=== PATIENT | female | born 1945 | race Caucasian/White ===

== ENCOUNTER 2025-01-25 15:25 | Inpatient (IN) | payer MEDICARE, OTHER, SELFPAY ==
[2025-01-25] VITALS (9 sets, daily range): BP systolic 102–121; BP diastolic 52–71; BMI 19.4; BMI 18.4
[2025-01-25 11:51] LABS: Hematocrit 38.2 % (37.0-47.0); Hemoglobin 12.9 g/dL (12.0-16.0); Mean Corp Hgb Conc. 33.8 g/dL (33.0-37.0); Mean Corpuscular Volume 95.7 fL (81.0-99.0); Nucleated Red Blood Cells % 0 %; Platelet Count 286 10^3/uL (130-400); Red Cell Dist. Width 14.6 % (11.5-14.5)
[2025-01-25 11:55] LABS: Urine Character Clear (Clear)
[2025-01-25 12:18] LABS: AST (SGOT) 19 U/L (14-36); Albumin 3.8 g/dl (3.5-5.0); Alkaline Phosphatase 63 U/L (38-126); Blood Urea Nitrogen 16 mg/dl (7-17); Calcium 9.5 mg/dl (8.4-10.2); Carbon Dioxide 24 mmol/L (22-30); Chloride 105 mmol/L (98-107); Estimated Creatinine Clearance 40 ml/min; Glucose 126 mg/dl (70-99); Potassium 4.5 mmol/L (3.5-5.1); Sodium 137 mmol/L (135-145); Total Protein 6.8 g/dl (6.3-8.2); eGFR 57.66
[2025-01-25 12:35] LABS: Urine Red Blood Cell 0-2 /HPF (0-2); Urine Squamous Cell 0-2 /LPF (Few); Urine Urothelial Cell 0-2 /LPF (FEW); Urine White Cell 0-2 /HPF (0-5)
[2025-01-25 13:01] LABS: ALT (SGPT) 14 U/L (0-35)
--- NOTE | 2025-01-25 13:54 | ED.GENMED ---
History of Present Illness
General
Chief Complaint: Weakness
Source: patient and spouse
Exam Limitations: none
Time Seen by Provider: 01/25/25 11:41
Nursing documentation reviewed up to this point in time: agreed with
History of Present Illness
History of Present Illness:
79-year-old female presents to the emergency department due to generalized weakness. She was hospitalized at [facility] recently for hemorrhagic CVA, and was at [facility] for rehab, and then was home and noted to have global weak by her .
Past History
Past History
ED Past Medical History: CVA, HTN and Seizures
Social History
Tobacco: Non-smoker
Alcohol: None
Drug: None
Personal:
Living: with family
Review of Systems
Review of Systems
Allergies reviewed?: Yes
All Other Systems: Not applicable
Constitutional: Reports fatigue
EENT: Reports no symptoms
Respiratory: Reports no symptoms
Cardiac: Reports no symptoms
ABD/GI: Reports no symptoms
: Reports no symptoms
Musculoskeletal: Reports no symptoms
Skin: Reports no symptoms
Neurological: Reports weakness
Endocrine: Reports no symptoms
Hematologic/Lymphatic: Reports no symptoms
Psychiatric: Reports no symptoms
Phy Exam
Physical Exam
Physical Exam:
Physical Exam
General: Chronic ill appearance, temp 100.0
Neck: supple. no meningeal signs. normal posterior pharynx
Heart: s1/s2 regular rate and rhythm, no murmur. equal radial
pulses.
HEENT: Pupils equal round reactive to light, EOMI
Lungs: no acute respiratory distress. clear bilaterally
Abdomen: normal bowel sounds. not tender. no CVAT
Neuro: alert and oriented. no focal neurological deficits cranial nerves II through XII intact
Skin: no rash
Psychiatric: well kept. interactive and cooperative
Extremities: no edema. no calf tenderness. negative homans. good distal pulses
Course
Orders/Labs/Results
Orders:
Orders
01/25/25 11:37
Electrocardiogram (*1) Urgent
Reason for Study: Fatigue / Weakness
EKG- Treatment ONCE
01/25/25 11:40
CMP [Comprehensive Metabolic Panel] Urgent
Complete Blood Count/With Diff Urgent
Urinalysis Reflex To Culture Urgent
Date Specimen was Collected: 01/25/25
Time Specimen was Collected: 11:37
Urine Microscopic Reflex Cult Urgent
01/25/25 12:00
CT Head W/o Iv Contrast Urgent
Comment:
Reason For Exam: left leg weakness, recent intracranial hemorrhage
01/25/25 12:35
CR Chest - 2 Views Urgent
Comment:
Reason For Exam: weakness, leukocytosis
Abnormal Lab Results
01/25/25
11:40
WBC 18.0 H 10^3/uL
(4.8-10.8)
RBC 3.99 L 10^6/uL
(4.20-5.40)
MCH 32.3 H pg
(27.0-31.0)
RDW 14.6 H %
(11.5-14.5)
Abs Immat Gran (auto) 0.1 H 10^3/uL
(0-0.05)
Absolute Neuts (auto) 12.6 H 10^3/uL
(1.4-6.5)
Absolute Monos (auto) 2.4 H 10^3/uL
(0.1-0.6)
Lymphocytes % 14.8 L %
(20.5-51.1)
Monocytes % 13.5 H %
(1.7-9.3)
Glucose 126 H mg/dl
(70-99)
Ur Occult Blood Reflex 1+ A
(Negative)
Urine Bacteria (Reflex) Few A
(Negative)
Urine Albumin (Reflex) 2+ A
(Neg - Trace)
01/25/25 11:40
01/25/25 11:40
Vital Signs
Initial and Last Documented VS:
Initial Vital Signs
Temp Pulse Resp BP Pulse Ox
100.0 F 76 16 108/59 94
01/25/25 11:21 01/25/25 11:21 01/25/25 11:21 01/25/25 11:21 01/25/25 11:21
Last Documented Vital Signs
Temp Pulse Resp BP Pulse Ox
100.0 F 78 22 102/52 91
01/25/25 11:21 01/25/25 12:15 01/25/25 12:15 01/25/25 12:00 01/25/25 12:15
MDM/Problems Addressed
Differential Diagnosis Includes:
Sepsis, CVA
MDM/Problems Addressed:
79-year-old female generalized weakness, temperature 100.0. CT head subacute CVA. Admit to hospitalist for further evaluation.
Chronic conditions affecting care: HTN
Acute Exacerbation and/or Progression of Chronic Illness: HTN
*Radiology
Radiology exam reviewed: radiology read reviewed (CT head shows subacute CVA)
*Pulse Oximetry
SaO2: 91
Oxygen Mode of Delivery: Room air
Patient hypoxic: no
*Door Cutter Interpretation
Rate: normal
Interpretation: normal
Heart Rate: 79
Rhythm: sinus
*Critical Care Note
Total Time (30-74mins, 75-104mins- exclusive of procedures): Not Applicable
Patient Management
Social determinants of health affecting care: Living situation and Strong social support
Discussion with other providers: Hospitalist
Escalation/DeEscalation of care consider admission/obs:
admit indicated
ED Attending Note
-
Portions of this chart may have been created with voice recognition software.� Occasional wrong word or��sound alike� substitutions may have occurred due to the inherent limitations of voice recognition software.
Discharge Plan
Departure
Patient Disposition: Admit
Date of Disposition: 01/25/25
Time of Disposition: 14:10
Admit to: Telemetry
Presentation/result/management discussed w/ accepting MD/DO: Hospitalist
Patient with high blood pressure during this ER visit?: Yes
Condition: Fair
Discharge Problem:
Weakness, CVA (cerebral vascular accident)
Referrals:
NONE,* [Family Provider, Internal Medicine]
Interventions
Interventions:
*Risk Screen - Suicide Last Done: 01/25/25 11:21
*General Assessment Last Done: 01/25/25 11:21
*Neglect/Abuse Screening Last Done: 01/25/25 11:21
*ED- Fall Risk Assessment Last Done: 01/25/25 11:21
*ED COVID-19 Vaccine History Last Done: 01/25/25 11:34
ED- Cardiac Assessment Last Done: 01/25/25 11:34
ED- Neurological Assessment Last Done: 01/25/25 11:34
ED- Pulmonary Assessment Last Done: 01/25/25 11:34
Discharge Date and Time
Print Language: SOMALI
--- NOTE | 2025-01-25 14:07 | HPS.HSE ---
Family Physician
-
Family Physician: * NONE
Chief Complaint
-
generalized weakness and confusion
History of Present Illness
Patient is a 79-year-old female with past medical history significant for hypertension, atrial fibrillation, CAD, hyperlipidemia, ischemic cardiomyopathy and Hx CVA who presented to [facility] ED for evaluation of generalized weakness and confusion.
Patient daughter and spouse at bedside to assist with HPI. [facility] rehab at [facility] following hospitalization and [facility] in October for cerebral hemorrhage. Patient has been able to walk
with walker, make needs known and was often 'chatty.' Patient was at known baseline yesterday evening prior to bed and had episode of urinary incontinence overnight, where she became agitated with care when being changed. She went back to bed and
woke this morning and speech was slower than normal, conversation was nonsensical at times and patient had generalized weakness and was unable to stand. Family denies any recent infectious symptoms, fevers, chills, cough, chest pain, shortness of
breath, nausea, vomting, diarrhea or urinary symptoms.
Medical History
Past Medical History
Past Medical History: Reports Other
Additional Past Medical History:
hypertension
atrial fibrillation
CAD
hyperlipidemia
ischemic cardiomyopathy
Hx CVA
Past Surgical History: Reports Other
Additional Past Surgical History:
cardiac cath with stents
Social History
Tobacco: Smoker (everyday smoker, currently <5 per day)
Alcohol: None
Drug: Marijuana (smokes occasionally )
Personal:
Living: With Family
Family History
Family History: Unable to Obtain
Allergies / Home Medications
Allergies reflects when Allergies were last updated in 2sms.
Home Medications with original date entered in 2sms
Allergy/Medication List:
Allergies
Allergy/AdvReac Type Severity Reaction Status Date / Time
No Known Allergies Allergy Unverified 01/25/25 11:21
Home Medications
amlodipine 5 mg tablet (Norvasc) 5 mg PO QPM 01/25/25
atorvastatin 40 mg tablet (Lipitor) 40 mg PO QPM 01/25/25
carvedilol 25 mg tablet (Coreg) 25 mg PO BID 01/25/25
olanzapine 2.5 mg tablet 2.5 mg PO TID 01/25/25
valproic acid (as sodium salt) 250 mg/5 mL oral solution 125 mg PO TID 01/25/25
Review of Systems
-
Unable to obtain full review of systems at this time due to: Dementia
History Source: Family
Abdomen/GI: Reports Constipated
Neurological: Reports Weakness and Other (confusion )
Physical Exam
Vital Signs
Vital Signs
Temp Pulse Resp BP Pulse Ox
100.0 F 78 22 102/52 91
01/25/25 11:21 01/25/25 12:15 01/25/25 12:15 01/25/25 12:00 01/25/25 13:55
Physical Exam
General: Well Developed, No Apparent Distress and Comfortable
HEENT: NormoCephalic, Moist mucous membranes, Atraumatic, Nose Appears Normal and Ears Appear Normal
Respiratory: Clear
Cardiac: S1/S2 and Regular Rhythm; No Murmur, Rub or Gallop
GI: Soft, Non Tender, Non Distended and Normal Bowel Sounds
Rectal: Deferred by Provider
Genito-urinary: Deferred by me
Musculoskeletal: No Clubbing, No Cyanosis and No Edema
Skin: Warm and IV/Catheter Site
Neuro: Awake, Nonfocal/grossly intact and Other (lethargic, minimally engaged in assessment)
Laboratory Results
-
01/25/25 11:40
01/25/25 11:40
Laboratory Results
Total Bilirubin 1.1 mg/dl (0.2-1.3) 01/25/25 11:40
AST 19 U/L (14-36) 01/25/25 11:40
ALT 14 U/L (0-35) 01/25/25 11:40
Alkaline Phosphatase 63 U/L (38-126) 01/25/25 11:40
Data Reviewed
-
Diagnostic Radiology: Report Reviewed by me (CXR: No acute pulmonary process identified.)
CT Scan: Report Reviewed by me (Head: Findings as above most consistent with large subacute to chronic right frontoparietal infarct. No clear acute loss of joyce-white differentiation identified. No acute intracranial hemorrhage identified.)
Medical Tests (Nuc Med, Echo, EKG etc): Report Reviewed by me (EKG: NORMAL SINUS RHYTHM LEFT AXIS DEVIATION MINIMAL VOLTAGE CRITERIA FOR LVH, MAY BE NORMAL VARIANT ( R in aVL ) ANTEROLATERAL INFARCT , AGE UNDETERMINED)
Lab Data: Labs Reviewed by me (WBC 18.0)
Impression/Plan
-
IMPRESSION:/PLAN:
#generalized weakness and confusion likely 2/2 metabolic encephalopathy from unknown infectious cause
WBC 18.0
low grade fever
no infectious symptoms
UA: no indication of UTI
Head CT: Findings as above most consistent with large subacute to chronic right frontoparietal infarct. No clear acute loss of joyce-white differentiation identified. No acute intracranial hemorrhage identified.
CXR: No acute pulmonary process identified.
EKG: NORMAL SINUS RHYTHM
LEFT AXIS DEVIATION
MINIMAL VOLTAGE CRITERIA FOR LVH, MAY BE NORMAL VARIANT ( R in aVL )
ANTEROLATERAL INFARCT , AGE UNDETERMINED
- Admit to telemetry
- IVF NSS 80cc/hr
- hold antibiotics for now
- blood cultures pending
#hypertension
- continue amlodipine and carvedilol
#atrial fibrillation
currently not on OAC r/t recent cerebral hemorrhage
- continue carvedilol
#CAD
#hyperlipidemia
#ischemic cardiomyopathy
- continue atorvastatin
#Hx CVA
#Hx cerebral hemorrhage
- continue valproic acid for seizure prophylaxis
#Hx delirium
- continue olanzapine
Code status: DNR
DVT prophylaxis: heparin sq
--- NOTE | 2025-01-25 15:06 | W.PN.UPDATE ---
Update Note
Progress Note Update
This is an addendum to H&P written by Yun Tello on 01/25/2025.
Patient seen and examined independently with [facility] [employer].
79-year-old female past medical history of hypertension, cerebral hemorrhage, atrial fibrillation, dysphagia, CAD, protein calorie malnutrition, hyperlipidemia, ischemic cardiomyopathy, CVA, presenting with generalized weakness. �No infectious
symptoms.
She was recently admitted at [facility] in October for cerebral hemorrhage then went to [facility] for rehab.
Vital signs normal apart from temperature of 100.0.. �Labs show leukocytosis. �Urinalysis unremarkable. �Chest x-ray shows no acute process. �CT head shows large subacute to chronic right frontoparietal infarct.
Suspect metabolic encephalopathy from infection. �Although unclear source of infection.
IV fluids. �Blood cultures pending. �Hold off antibiotics.
--- NOTE | 2025-01-25 15:32 | CM ---
Nicolette note: Patient is current with [facility] per Rosy at [facility], and they would like patient referred back to them at discharge.
[facility]
[phone]
[2025-01-25] MEDS: NSS 1000 IV (17:43)
[2025-01-25] MEDS: DEPAKENE 125 MG PO ×2 (17:44→21:39)
[2025-01-25] MEDS: NORVASC 5 MG PO (17:44)
[2025-01-25] MEDS: LIPITOR 40 MG PO (17:44)
[2025-01-25] MEDS: ZYPREXA 2.5 MG PO ×2 (17:45→21:39)
[2025-01-25] MEDS: COREG 25 MG PO (20:22)
[2025-01-25] MEDS: TYLENOL 650 MG PO (23:35)
[2025-01-26] VITALS (9 sets, daily range): BP systolic 88–113; BP diastolic 49–65
[2025-01-26] MEDS: NSS 250 IV (03:42)
--- NOTE | 2025-01-26 03:45 | PTCARENOTE ---
Pt's BP 94/49, HR 68 at 03:00 vitals. [place] BP obtained, 90/50. [place] text sent to House Provider, Gabrielle Fox. Orders received for 250mL NS bolus. Parameters added to coreg. Will reassess BP after bolus.
[2025-01-26] MEDS: NSS 1000 IV (04:19)
[2025-01-26 07:53] LABS: Hematocrit 35.7 % (37.0-47.0); Hemoglobin 11.9 g/dL (12.0-16.0); Mean Corp Hgb Conc. 33.3 g/dL (33.0-37.0); Mean Corpuscular Volume 95.7 fL (81.0-99.0); Platelet Count 298 10^3/uL (130-400); Red Cell Dist. Width 14.2 % (11.5-14.5)
[2025-01-26 08:26] LABS: Blood Urea Nitrogen 18 mg/dl (7-17); Calcium 8.4 mg/dl (8.4-10.2); Carbon Dioxide 21 mmol/L (22-30); Chloride 107 mmol/L (98-107); Estimated Creatinine Clearance 42 ml/min; Glucose 109 mg/dl (70-99); Potassium 4.0 mmol/L (3.5-5.1); Sodium 139 mmol/L (135-145); eGFR > 60.00
--- NOTE | 2025-01-26 08:44 | W.PN.HOSP.TC ---
Today's Communication/Plan
-
Neurology and ID consult
Assessment / Plan
Assessment / Plan
Physical exam:
General: Acutely ill
HEENT: Normocephalic, Atraumatic and Moist Mucous Membranes
Respiratory: Decreased breath sounds bilaterally, no crackles or wheezes
Cardiac: Regular Rhythm and S1/S2
GI: Soft, Nontender and Nondistended
Musculoskeletal: No Clubbing, No Cyanosis and No Edema
Neuro: Lethargic, does not respond to verbal stimuli, follow commands, generalized weakness more pronounced RLE.
Psych: Limited judgment and insight
A/P:
Toxic metabolic encephalopathy:
Recrudescence of stroke versus acute ischemic event versus seizures versus infectious etiology versus other
Seen CT scan of the head
Neurology consult
Obtain old medical records
On valproic acid for seizures prevention per family
Discussed with at bedside
Discussed with daughter over the phone
Febrile illness:
Unclear source
Blood cultures no growth but pending
Chest x-ray and UA unremarkable
WBC 18--> 17.3
Off antibiotics
Stop IV fluids
ID consult
Hypertension:
Continue amlodipine and Coreg
Hyperlipidemia:
Continue atorvastatin
Paroxysmal A-fib:
On rate control, Coreg
Not on anticoagulation due to ICH
Cardiac monitoring
Rest of medical problems:
History of cerebral hemorrhage
History of moderate to severe protein calorie malnutrition
Nicotine addiction
History of atrial fibrillation, unspecified
History of probable CAD
History of dysphagia
History of ischemic cardiomyopathy
Delirium
Anemia
DVT prophylaxis:
SCDs
Code status:
DNR
Total time spent on today's encounter was 58 minutes which included time spent in counseling the patient/family regarding diagnosis and treatment plan as listed above, goals of care, and symptom management. Case was discussed with nursing staff,
specialists, and care coordinators/case management. All labs and imaging personally reviewed by me. Remainder the time spent in detailed review of previous records, lab data, imaging, and other medical provider documentation.
Anticipated Discharge: > 48 hours
Subjective/Interval History
-
Date of Service: January 26, 2025
Patient seems to be more alert today but still mildly lethargic and off. Afebrile today.
Objective Data
-
Labs:
Laboratory Results
01/26/25
06:34
WBC 17.3 H
Hgb 11.9 L
Hct 35.7 L
Plt Count 298
Sodium 139
Potassium 4.0
Chloride 107
Carbon Dioxide 21 L
BUN 18 H
Creatinine 0.9
Glucose 109 H
Calcium 8.4
Vital Signs:
Vital Signs
Temp Pulse Resp BP Pulse Ox
97.9 F 72 16 113/65 100
01/26/25 07:00 01/26/25 07:00 01/26/25 07:00 01/26/25 07:00 01/26/25 07:00
I&O
01/25/25 01/26/25 01/27/25
06:59 06:59 06:59
Intake Total 1690 / 1690
Balance 1690 / 1690
[2025-01-26] MEDS: COREG 25 MG PO (09:25)
[2025-01-26] MEDS: NICODERM TRANSDERMAL 7 MG TRANSDERM (09:25)
[2025-01-26] MEDS: DEPAKENE 125 MG PO ×3 (09:26→21:09)
[2025-01-26] MEDS: ZYPREXA 2.5 MG PO ×3 (09:26→21:09)
--- NOTE | 2025-01-26 09:30 | PTCARENOTE ---
patient telling nurse she had to urinate- placed on bedpan- patient unable to urinate- bladder scan completed for 432 ml- patient assisted to bedsixde commode- voided 75ml of kavya urine- plan of care on going
[2025-01-26] MEDS: SENOKOT-S 1 TABLET PO (09:39)
--- NOTE | 2025-01-26 12:56 | PTCARENOTE ---
BP 88/53 patient asymptomatic- Dr Woods aware and instructed to monitor and recheck BP in 1 hour- repeat BP 112/58. Dr Woods aware. plan of care on going.
--- NOTE | 2025-01-26 14:00 | CHAP ---
Msgr. Geovanni Blackwood of [facility] in [place] gave Cindi a [place] at her request. Exact time uncertain.
--- NOTE | 2025-01-26 15:25 | CON.ID ---
Consultation
-
Date/Time Consultation Requested: January 26, 2025 1033
Date/Time Consultation Performed: January 26, 2025 1530
Requesting Provider: Dr. Srinivasa Woods
Performing Provider: Dr. Carolyn Hollingsworth
Reason for Consultation: Fever
Chief Complaint / Past History
Chief Complaint
Unable to move legs and decreased mental status
History of Present Illness
History obtained from patient as well as from her at bedside. 79-year-old female with history of hypertension, tobacco disorder, CVA x 3 the most recent being hemorrhagic CVA hospitalized at [facility] 11/01 - 11/18, then transferred
to local SNF rehab at [facility] till 01/19, then discharged to her daughter's home. Patient was doing well at home working with PT, ambulating with and without her walker. On Saturday, January 24 patient noted to be slightly weak and her voice was
soft. Yesterday January 25, home PT noted patient was very weak and unable to move her legs. Patient also very lethargic, slumped over, almost unresponsive. She was sent to the ER. In ED initial temperature 100 which escalated to 100.7 last
night. White count 18. Blood cultures pending. UA negative. Chest x-ray negative. CT of the head shows large subacute to chronic right frontoparietal infarct. Patient's mental status has improved today. Patient denies headache, sinus
congestion, rhinorrhea, or sore throat. No cough. Has mild shortness of breath with exertion. No nausea or vomiting. No abdominal pain. She is constipated, last bowel movement 4 days ago. No dysuria, urgency, frequency, or flank pain. No
dysphagia. She eats regular foods and reports no recent coughing with food. No ill contacts. No subjective fever, no shaking chills.
Past History
Additional Past Medical History:
CVA x3: second in 2021 s/p ? thrombolysis; 3rd episode hemorrhagic CVA (October 2024)
CAD status post stents x 3 (Acute [place] during CVA thrombolysis procedure 2021)
Ischemic cardiomyopathy
Hypertension
Tobacco use disorder
Allergy History:
No Known Allergies Allergy (Unverified 01/25/25 11:21)
Medications Reviewed: Yes
Current Antibiotics:
None
Social History
Tobacco: Smoker (Less than 5 cigs /day)
Alcohol: None
Drug: Marijuana
Personal:
Living: With Family
Family History
Family History: Not Pertinent
Review of Systems
Review of Systems
General: Change in Appetite; Negative Fever or Chills
HEENT: Negative Stiff Neck, Sinus Problems, Headache or Pharyngitis
Cardiovascular: Dyspnea; Negative Chest Pain
Respiratory: Negative Cough or Sputum Production
Gasteroenterology: Negative Nausea, Vomiting or Diarrhea
Genital / Urological: Negative Dysuria or Flank Pain
Endocrine: Weakness
Skin / Hair / Nails: Negative Rash
Neurological: Negative Dizziness
All systems: All other systems were reviewed and were negative
Vital Signs
Temp Pulse Resp BP Pulse Ox
98.5 F 71 16 113/60 98
01/26/25 15:19 01/26/25 15:19 01/26/25 15:19 01/26/25 15:19 01/26/25 15:19
Selected Entries
01/25/25
23:30
Temp 100.7 F H
Physical Exam
Physical Exam
Constitutional: Chronically Ill
Head: Other (No frontal or maxillary sinus tenderness)
Eyes: Negative No Conjunctival Hemorrhage or Sclera Anicteric
Cardiovascular: Regular Rate and S1/S2
Pulmonary: Clear
Gastrointestinal: Soft, Non Tender, Non Distended and Normal Bowel Sounds
Genito-Urinary: Negative CVA Tenderness
Extremities: Negative Edema
Neurological: AO x 3 and Other (Drowsy; BLE able to flex/extend feet, can bend knees slightly, unable to raise legs at hips); Negative Meningeal Signs
Lab / Diagnostic Study Results
07/01/25 06:34
01/26/25 06:34
Abs Immat Gran (auto) 0.1 10^3/uL (0-0.05) H 01/25/25 11:40
Absolute Neuts (auto) 12.6 10^3/uL (1.4-6.5) H 01/25/25 11:40
Absolute Lymphs (auto) 2.7 10^3/uL (1.2-3.4) 01/25/25 11:40
Absolute Monos (auto) 2.4 10^3/uL (0.1-0.6) H 01/25/25 11:40
Absolute Basos (auto) 0.1 10^3/uL (0-0.2) 01/25/25 11:40
Immature Gran % 0.5 % (0-0.5) 01/25/25 11:40
Neutrophils % 69.9 % (42.2-75.2) 01/25/25 11:40
Lymphocytes % 14.8 % (20.5-51.1) L 01/25/25 11:40
Monocytes % 13.5 % (1.7-9.3) H 01/25/25 11:40
Eosinophils % 0.9 % (0-6) 01/25/25 11:40
Basophils % 0.4 % (0-2) 01/25/25 11:40
Ur Squamous Epith Cells 0-2 /LPF (Few) 01/25/25 11:40
Microbiology Results
Micro:
01/25/25 15:47 Blood Culture - Pending
Blood/Venous
01/25/25 15:47 Blood Culture - Pending
Blood/Venous
01/25/25 CT Head: Findings as above most consistent with large subacute to chronic right frontoparietal infarct. No clear acute loss of joyce-white differentiation identified. No acute intracranial hemorrhage identified.
01/25/25 CXR: No acute pulmonary process identified.
Assessment / Plan
# Low grade fever x 1
# Leukocytosis
# New BLE weakness
# Recent R hemorrhagic CVA 11/01/24
# h/o CVA x 3
# Active smoker
# [place] during CVA thrombolysis s/p stents x 3 (2021)
- Await records from outside hospital
- Recommend MRI brain to evaluate for acute CVA, extension of previous hemorrhage, etc. Neurology to evaluate.
- Fever and leukocytosis can be due to CVA.
- No infectious etiology identified to date - UA neg, CXR neg, no focal symptoms.
- Await blood cx's result
- Repeat CXR 2V in am
- Observe off abx at this time.
--- NOTE | 2025-01-26 15:57 | CM ---
Spoke w/ patient's daughter, Montse. Initial assessment completed. Patient is a 79-year-old female with past medical history significant for hypertension, atrial fibrillation, CAD, hyperlipidemia, ischemic cardiomyopathy and Hx CVA who presented to
[facility] ED for evaluation of generalized weakness and confusion.
Patient primarily resides w/ spouse in [place], however, since patient discharged from [facility], she and spouse have been residing w/ their daughter, Montse, in a single story rancher, 2 steps to enter. Per Montse, patient recently had a
stroke, hospitalized for 2 1/2 weeks, then d/c to [facility] for about 10 weeks. Montse stated patient has the support of she and spouse to ambulate, but has a RW and w/c. Patient is assisted w/ ADLs by spouse and daughters. Patient is current w/
[facility]. Montse stated patient will d/c back to her home.
Address, points of contacts and insurance verified. Daughter's address is [address] [place], [place]
[facility]. Patient was due to have a new patient appt today
Pharmacy: [facility]
PT/OT linda ordered, will watch for recommendations
Plan: CM will cont to follow for d/c planning
[2025-01-26] MEDS: LIPITOR 40 MG PO (18:12)
[2025-01-26] MEDS: NORVASC 5 MG PO (18:13)
[2025-01-26] MEDS: COREG PO (21:08)
[2025-01-27] VITALS (7 sets, daily range): BP systolic 111–125; BP diastolic 59–71
[2025-01-27 07:48] LABS: Hematocrit 35.3 % (37.0-47.0); Hemoglobin 11.9 g/dL (12.0-16.0); Mean Corp Hgb Conc. 33.7 g/dL (33.0-37.0); Mean Corpuscular Volume 95.1 fL (81.0-99.0); Nucleated Red Blood Cells % 0 %; Platelet Count 320 10^3/uL (130-400); Red Cell Dist. Width 14.1 % (11.5-14.5)
[2025-01-27 08:14] LABS: Blood Urea Nitrogen 21 mg/dl (7-17); Calcium 8.6 mg/dl (8.4-10.2); Carbon Dioxide 25 mmol/L (22-30); Chloride 108 mmol/L (98-107); Estimated Creatinine Clearance 42 ml/min; Glucose 117 mg/dl (70-99); Potassium 3.9 mmol/L (3.5-5.1); Sodium 136 mmol/L (135-145); eGFR > 60.00
[2025-01-27] MEDS: DEPAKENE 125 MG PO ×3 (08:33→21:07)
[2025-01-27] MEDS: NICODERM TRANSDERMAL 7 MG TRANSDERM (08:34)
[2025-01-27] MEDS: ZYPREXA 2.5 MG PO ×3 (08:36→21:07)
[2025-01-27] MEDS: COREG 25 MG PO ×2 (08:36→19:59)
--- NOTE | 2025-01-27 10:03 | W.PN.ID1 ---
Date of Service
Date of Service: January 27, 2025
Today's Communication
Augmentin 875mg po bid x 5 days through 01/31.
ID will sign off.
Assessment / Plan
# Low grade fever x 1 resolved
# Leukocytosis improving
# Probable mild RLL aspiration PNA from recent decreased mental status
# New BLE weakness
# Recent R hemorrhagic CVA 11/01/24
# h/o CVA x 3
# Active smoker
# [place] during CVA thrombolysis s/p stents x 3 (2021)
- Awaiting records from outside hospital
- UA neg, CXR neg, no focal symptoms.
- blood cx's neg to date.
- 01/27/25 Repeat CXR 2V : new RLL opacity. Pt without significant cough.
- Treat for probable aspiration PNA from recent change in mental status.
Augmentin 875mg po bid x 5 days through 01/31.
ID will sign off.
Chief Complaint
-: Fever
Subjective / Review of Systems
Feeling better. Eating.
No cough. mild SOB with exertion
Vital Signs / Physical Exam
Vital Signs
Vital Signs
Temp Pulse Resp BP Pulse Ox
99.3 F 76 18 125/66 97
01/27/25 07:27 01/27/25 08:36 01/27/25 07:27 01/27/25 08:36 01/27/25 07:27
Physical Exam
Constitutional: No Acute Distress
Cardiovascular: Regular Rate and S1/S2
Pulmonary: Rales (bibase)
Gastrointestinal: Soft, Non Tender, Non Distended and Normal Bowel Sounds
Extremities: Negative Edema
Neurological: AO x 3
Objective Data
Lab Data
Lab Results
01/27/25 07:08
01/27/25 07:08
Estimated Creat Clear 42 ml/min 01/27/25 07:08
Total Bilirubin 1.1 mg/dl (0.2-1.3) 01/25/25 11:40
AST 19 U/L (14-36) 01/25/25 11:40
ALT 14 U/L (0-35) 01/25/25 11:40
Alkaline Phosphatase 63 U/L (38-126) 01/25/25 11:40
Most recent labs reviewed.
Micro Results:
01/25/25 15:47 Blood Culture - Preliminary
Blood/Venous No Growth in 24 hours- Final report to follow
01/25/25 15:47 Blood Culture - Preliminary
Blood/Venous No Growth in 24 hours- Final report to follow
01/27/25 CXR: Patchy parenchymal opacity within the right lower lung, new from previous radiograph. This likely represents pneumonia, probably within the right lower lobe.
01/25/25 CT Head: Findings as above most consistent with large subacute to chronic right frontoparietal infarct. No clear acute loss of joyce-white differentiation identified. No acute intracranial hemorrhage identified.
01/25/25 CXR: No acute pulmonary process identified.
--- NOTE | 2025-01-27 10:22 | W.PN.HOSP.TC ---
Addendum entered and electronically signed by Srinivasa Woods MD 01/27/25 14:50:
Underweight
Original Note:
Today's Communication/Plan
-
Antibiotics. Neurology eval pending
Assessment / Plan
Assessment / Plan
Physical exam:
General: Acutely ill
HEENT: Normocephalic, Atraumatic and Moist Mucous Membranes
Respiratory: Decreased breath sounds bilaterally, no crackles or wheezes
Cardiac: Regular Rhythm and S1/S2
GI: Soft, Nontender and Nondistended
Musculoskeletal: No Clubbing, No Cyanosis and No Edema
Neuro: Alert, does respond to verbal stimuli, follow commands, generalized weakness more pronounced both lower extremities, left-sided neglect.
Psych: Improved judgment and insight
A/P:
Toxic metabolic encephalopathy:
Recrudescence of stroke versus acute ischemic event versus seizures versus infectious etiology versus other
Seen CT scan of the head
Neurology consult
Obtain old medical records
On valproic acid for seizures prevention per family
Discussed with at bedside yesterday and today
Discussed with daughter over the phone yesterday
PT OT and speech eval
Febrile illness due to aspiration pneumonia:
Probable aspiration pneumonia per ID
Started on Augmentin
Blood cultures no growth
WBC 18-->13
Hypertension:
Continue amlodipine and Coreg
Hyperlipidemia:
Continue atorvastatin
Paroxysmal A-fib:
On rate control, Coreg
Not on anticoagulation due to ICH
Cardiac monitoring
Rest of medical problems:
History of cerebral hemorrhage
History of moderate to severe protein calorie malnutrition
Nicotine addiction
History of atrial fibrillation, unspecified
History of probable CAD
History of dysphagia
History of ischemic cardiomyopathy
Delirium
Anemia
DVT prophylaxis:
SCDs
Code status:
DNR
Time spent 35 minutes
Anticipated Discharge: 24 - 48 hours
Subjective/Interval History
-
Date of Service: January 27, 2025
Patient more alert today. No chest pain or shortness of breath. Afebrile
Objective Data
-
Labs:
Laboratory Results
01/27/25
07:08
WBC 13.0 H
Hgb 11.9 L
Hct 35.3 L
Plt Count 320
Sodium 136
Potassium 3.9
Chloride 108 H
Carbon Dioxide 25
BUN 21 H
Creatinine 0.9
Glucose 117 H
Calcium 8.6
Vital Signs:
Vital Signs
Temp Pulse Resp BP Pulse Ox
99.3 F 76 18 125/66 97
01/27/25 07:27 01/27/25 08:36 01/27/25 07:27 01/27/25 08:36 01/27/25 07:27
I&O
01/26/25 01/27/25 01/28/25
06:59 06:59 06:59
Intake Total 2049
Output Total 1024 / 1025
Balance 1024 / 1025
[2025-01-27] MEDS: AUGMENTIN 875 MG/125 MG 1 TABLET PO ×2 (11:14→20:00)
--- NOTE | 2025-01-27 13:47 | PTOTSP ---
G[employer] Evaluations
Patient presents with signs concerning for mild oral stage differences likely exacerbated by acute encephalopathy and lack of dentition. Concern for aspiration PNA noted. Cannot r/o silent aspiration at the bedside. Given history of large
frontoparietal stroke consider video swallow study to objectively assess swallowing function and rule out aspiration. Do not feel patient would tolerate FEES at this time with confusion.
Signs concerning for significant deficits in cognitive linguistic skills (attention, memory, executive function/insight) noted with additional impact on language (decreased command following, hesitations/word finding difficulty in conversation).
Patient with acute encephalopathy likely exacerbating symptoms. Neurology consult pending to determine etiology of symptoms.
Recommend:
1. IDDSI 6 Soft/Bite Sized, Thin Liquids
2. Medications CRUSHED in puree if medically cleared
3. Strategies: full supervision, assist as needed, small single sips/bites, alternate sips/bites, reduce distractions with meals
4. Video swallow study to rule out silent aspiration
5. Continued cognitive linguistic/language evaluation/tx as appropriate pending etiology of symptoms.
--- NOTE | 2025-01-27 14:25 | PTOTSP ---
Speech Language Pathology
VIDEOFLUOROSCOPIC SWALLOWING EXAMINATION (VSE) completed. Mild oral dysphagia noted with minimal mastication and oral residue with regular solids, likely secondary to combination of edentulous status and cognitive status. Only transient
supraglottic penetration (PAS 2) noted with consecutive straw sips. No aspiration noted.
Recommend:
(1) Downgrade to IDDSI Level 5 (minced/moist) and thin liquids
(2) Aspiration precautions: slow rate, ensure oral cavity clear post P.O. intake and suction if needed, sit upright, partial supervision
(3) Meds crushed in puree as able
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
--- NOTE | 2025-01-27 14:25 | PN.CDI ---
CDI
- -
CDI:
Physician Documentation Request
Admit Date: 01/25/25 15:25
Dear Doctor Chuck,
Please review the following and provide your response in the progress notes.
Clinical Indicators:
Height: 5'6
Weight: 114 lbs
BMI: 18.4
Other Clinical Notes: Marketing Rep indicates underweight
If possible, please provide an associated diagnosis related to the abnormal BMI, such as:
Underweight
Cachectic
Other (please specify)
Use of terms such as suspected, likely, concern for, or probable (associated with a specific diagnosis that is being evaluated, monitored, or treated as if it exists) are acceptable and can be coded in the inpatient setting, when documented at the
time of discharge.
Thank you,
Cam Sanchez RN
CDI Specialist
Please use your independent medical judgment in providing your response.
[2025-01-27] MEDS: NORVASC 5 MG PO (17:02)
[2025-01-27] MEDS: LIPITOR 40 MG PO (17:04)
--- NOTE | 2025-01-27 20:54 | CON.NEURO ---
Neuro Assessment/Plan
Assessment
the clinical history and exam would be consistent with a GBS-like picture which can have some encephalitis features though this is not typically seen
will check brain MRI
would hold off on EMG or treatment given that the patient is improving, and no point in getting an LP bloody tap.
this was discussed with her
Plan
please call if condition worsens
Consultation
Order
Date of Consultation: 01/27/25
Requesting Provider: Srinivasa Woods
Reason for Consult: weakness
Subjective/Objective
Subjective Data
Date of Service: January 27, 2025
from H&P:
Patient is a 79-year-old female with past medical history significant for hypertension, atrial fibrillation, CAD, hyperlipidemia, ischemic cardiomyopathy and Hx CVA who presented to [facility] ED for evaluation of generalized weakness and confusion.
Patient daughter and spouse at bedside to assist with HPI. Patient was discharged home [facility] Saturday from rehab at [facility] following hospitalization and [facility] in October for cerebral hemorrhage. Patient has been able to walk
with walker, make needs known and was often 'chatty.' Patient was at known baseline yesterday evening prior to bed and had episode of urinary incontinence overnight, where she became agitated with care when being changed. She went back to bed and
woke this morning and speech was slower than normal, conversation was nonsensical at times and patient had generalized weakness and was unable to stand. Family denies any recent infectious symptoms, fevers, chills, cough, chest pain, shortness of
breath, nausea, vomting, diarrhea or urinary symptoms.
spoke with , since the patient was admitted on saturday condition is improving, getting stronger
patient tells me about how she was just rollerskating around the house
Objective Data
Vital Signs
Temp Pulse Resp BP Pulse Ox
37.0 C 85 18 113/61 95
01/27/25 19:29 01/27/25 19:29 01/27/25 19:29 01/27/25 19:29 01/27/25 19:29
Lab Results
01/27/25 07:08
01/27/25 07:08
Sodium 136 mmol/L (135-145) 01/27/25 07:08
Potassium 3.9 mmol/L (3.5-5.1) 01/27/25 07:08
BUN 21 mg/dl (7-17) H 01/27/25 07:08
Glucose 117 mg/dl (70-99) H 01/27/25 07:08
Calcium 8.6 mg/dl (8.4-10.2) 01/27/25 07:08
Patient Allergies
No Known Allergies Allergy (Unverified 01/26/25 16:36)
Physical Exam
-
Awake and alert, oriented to month but not her age. delusion. pleasant and cooperative
bilateral upper ext full strength, lower ext 2-3/5, decreased tone
sensation with absent vibration at the ankles, diminished at the knees
DTRs 1+ bilateral biceps, knees, ankles
mild distal dysmetria
Medications
-
Active Medications
Generic Name Dose Route Start Last Admin
Trade Name Freq PRN Reason Stop Dose Admin
Acetaminophen 650 mg 01/25/25 16:59 01/25/25 23:35
Acetaminophen 325 Mg Tablet PO 02/22/25 16:58 650 mg
Q4HPRN PRN Administration
mild pain/BRAUN/temp> 100.4F
Amlodipine Besylate 5 mg 01/25/25 18:00 01/27/25 17:02
Amlodipine 5 Mg Tablet PO 02/22/25 17:59 5 mg
QPM NELSON Administration
Amoxicillin/Clavulanate Potassium 1 tablet 01/27/25 11:00 01/27/25 20:00
Amoxicillin (875 Mg)/Clavulanate (125 Mg) Tablet PO 01/31/25 20:01 1 tablet
Q12 NELSON Administration
Atorvastatin Calcium 40 mg 01/25/25 18:00 01/27/25 17:04
Atorvastatin (Lipitor) 40 Mg Tablet PO 02/22/25 17:59 40 mg
QPM NELSON Administration
Bisacodyl 10 mg 01/25/25 16:59
Bisacodyl 10 Mg Rectal Suppository RECTAL 02/22/25 16:58
[id number] PRN
constipation
Carvedilol 25 mg 01/25/25 20:00 01/27/25 19:59
Carvedilol 25 Mg Tablet PO 02/22/25 19:59 25 mg
BID NELSON Administration
Nicotine 7 mg 01/26/25 08:00 01/27/25 08:34
Nicotine 7 Mg Patch TRANSDERM 02/23/25 07:59 7 mg
DAILY NELSON Administration
Olanzapine 2.5 mg 01/25/25 16:59 01/27/25 17:04
Olanzapine 2.5 Mg Tablet PO 02/22/25 16:58 2.5 mg
TID NELSON Administration
Polyethylene Glycol 17 grams 01/25/25 16:59
Polyethylene Glycol Powder 17 Grams Packet PO 02/22/25 16:58
DAILYPRN PRN
constipation
Senna/Docusate Sodium 1 tablet 01/25/25 16:59 01/26/25 09:39
Docusate W/Senna (Mirtha-Colace) Tablet PO 02/22/25 16:58 1 tablet
BIDPRN PRN Administration
constipation
Sodium Chloride 0 flush 01/25/25 18:00
Sodium Chloride 0.9% (Flush) Syringe IV 02/22/25 17:59
PER PROTOCOL NELSON
Valproate Sodium 125 mg 01/25/25 18:00 01/27/25 17:00
Valproic Acid Syrup (250 Mg/5 Ml) Cup PO 02/22/25 17:59 125 mg
TID NELSON Administration
Home Medications
�Medication �Instructions �Recorded
amlodipine 5 mg tablet (Norvasc) 5 mg PO QPM Blood Pressure 01/25/25
atorvastatin 40 mg tablet (Lipitor) 40 mg PO QPM High Cholesterol 01/25/25
carvedilol 25 mg tablet (Coreg) 25 mg PO BID Blood Pressure 01/25/25
olanzapine 2.5 mg tablet 2.5 mg PO TID Mental Health/Anxiety 01/25/25
valproic acid (as sodium salt) 250 125 mg PO TID Seizures 01/25/25
mg/5 mL oral solution
[2025-01-28] VITALS (8 sets, daily range): BP systolic 93–135; BP diastolic 59–80; PULSE 67; O2SAT 95
[2025-01-28] MEDS: ATIVAN 0.5 MG PO (00:41)
[2025-01-28] MEDS: TYLENOL 650 MG PO ×2 (01:58→15:27)
[2025-01-28 07:37] LABS: Hematocrit 36.3 % (37.0-47.0); Hemoglobin 12.2 g/dL (12.0-16.0); Mean Corp Hgb Conc. 33.6 g/dL (33.0-37.0); Mean Corpuscular Volume 94.0 fL (81.0-99.0); Nucleated Red Blood Cells % 0 %; Platelet Count 311 10^3/uL (130-400); Red Cell Dist. Width 14.0 % (11.5-14.5)
[2025-01-28] MEDS: ZYPREXA 2.5 MG PO ×3 (08:02→20:59)
[2025-01-28] MEDS: AUGMENTIN 875 MG/125 MG 1 TABLET PO ×2 (08:02→20:58)
[2025-01-28] MEDS: COREG 25 MG PO ×2 (08:03→20:59)
[2025-01-28] MEDS: DEPAKENE 125 MG PO ×3 (08:03→20:59)
[2025-01-28] MEDS: NICODERM TRANSDERMAL 7 MG TRANSDERM (08:04)
[2025-01-28 08:50] LABS: Blood Urea Nitrogen 21 mg/dl (7-17); Calcium 8.8 mg/dl (8.4-10.2); Carbon Dioxide 24 mmol/L (22-30); Chloride 108 mmol/L (98-107); Estimated Creatinine Clearance 47 ml/min; Glucose 119 mg/dl (70-99); Potassium 4.3 mmol/L (3.5-5.1); Sodium 137 mmol/L (135-145); eGFR > 60.00
--- NOTE | 2025-01-28 11:03 | CM ---
Patient chart reviewed
MRI brain today
PT/OT rec Home health
Patient is current w/ [facility]. Daughter Montse stated patient will d/c back to her home.
Referral in [facility]
PLAN: Home with daughter with [facility]
--- NOTE | 2025-01-28 11:44 | W.PN.HOSP.TC ---
Addendum entered and electronically signed by Srinivasa Woods MD 01/28/25 18:09:
Discussed with neurologist today and no need for antiplatelets but...risk/benefit can be discussed down the road when mental status better
Original Note:
Today's Communication/Plan
-
Antibiotics. Brain MRI
Assessment / Plan
Assessment / Plan
Physical exam:
General: Acutely ill
HEENT: Normocephalic, Atraumatic and Moist Mucous Membranes
Respiratory: Decreased breath sounds bilaterally, no crackles or wheezes
Cardiac: Regular Rhythm and S1/S2
GI: Soft, Nontender and Nondistended
Musculoskeletal: No Clubbing, No Cyanosis and No Edema
Neuro: Alert, disoriented today, does respond to verbal stimuli, follow commands, generalized weakness more pronounced both lower extremities, left-sided neglect.
Psych: Lack of Judgment and insight, disorganized thought
A/P:
Toxic metabolic encephalopathy:
Recrudescence of stroke versus acute ischemic event versus seizures versus infectious etiology versus other
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
Seen CT scan of the head
Plan for MRI of the brain-possible new strokes
Neurology consult appreciated-discussed with neurology in person today
Obtain old medical records
On valproic acid for seizures prevention per family
Discussed with at bedside today
Discussed with daughter over the phone today
PT OT and speech eval
Febrile illness due to aspiration pneumonia:
Probable aspiration pneumonia per ID
Started on Augmentin
Blood cultures no growth
WBC 18-->12.6
Hypertension:
Continue amlodipine and Coreg
Hyperlipidemia:
Continue atorvastatin
Paroxysmal A-fib:
On rate control, Coreg
Not on anticoagulation due to ICH
Cardiac monitoring
Rest of medical problems:
History of cerebral hemorrhage
History of moderate to severe protein calorie malnutrition
Nicotine addiction
History of atrial fibrillation, unspecified
History of probable CAD
History of dysphagia
History of ischemic cardiomyopathy
Delirium
Anemia
DVT prophylaxis:
SCDs
Code status:
DNR
Time spent 35 minutes
Anticipated Discharge: > 48 hours
Subjective/Interval History
-
Date of Service: January 28, 2025
Patient alert but disoriented today. Afebrile.
Objective Data
-
Labs:
Laboratory Results
01/28/25
07:17
WBC 12.6 H
Hgb 12.2
Hct 36.3 L
Plt Count 311
Sodium 137
Potassium 4.3
Chloride 108 H
Carbon Dioxide 24
BUN 21 H
Creatinine 0.8
Glucose 119 H
Calcium 8.8
Vital Signs:
Vital Signs
Temp Pulse Resp BP Pulse Ox
97.3 F 72 14 105/69 96
01/28/25 11:42 01/28/25 11:42 01/28/25 11:42 01/28/25 11:42 01/28/25 11:42
I&O
01/27/25 01/28/25 01/29/25
06:59 06:59 06:59
Intake Total 2049 600 / 600 120 / 120
Output Total 5 / 1025 1900 / 190 200 / 200
Balance 1025 / 1025 -1300 / -1300 -80 / -80
--- NOTE | 2025-01-28 14:25 | PTOTSP ---
Speech Language Pathology
Pt seen for therapeutic reassessment of cognitive-linguistic abilities via the Elton Cognitive Assessment (MOCA), version 8.2. Pt with an overall score of 12/30 where normal range is 26-30. Pt with moderate-severe cognitive deficits. No
insight noted with decreased initiation. Pt did not understand purpose of task or that she was having difficulty, stating 'this is silly' multiple times.
Pt also seen for dysphagia tx. Reviewed results/recommendations from VSE with pt/. Discussed reason for IDDSI Level 5 being decreased mastication and no awareness of residue in oral cavity. Seen with sips of liquids via straw without
difficulty. Also trialed small bite of a cracker with pt more sucking on cracker than actively masticating.
Recommend:
(1) Continue IDDSI Level 5 (minced/moist) and thin liquids
(2) Aspiration precautions: slow rate, ensure oral cavity clear post P.O. intake and suction if needed, sit upright, partial supervision
(3) Meds crushed in puree as able
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
--- NOTE | 2025-01-28 17:06 | W.PN.NEURO.1 ---
Today's Communication / Plan
-
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
22 mins on phone speaking with dtr
Neuro Assessment/Plan
Assessment
brain MRI imgs rev'd new acute stroke right subcortical, tiny. chronic encephalomalacia right hemisphere
the clinical history and exam would be consistent with a GBS-like picture which can have some encephalitis features though this is not typically seen
would hold off on EMG or treatment given that the patient is improving, and no point in getting an LP bloody tap.
this was discussed with her
spoke extensively with dtr over the phone - re suspicions of GBS, EMG, IVIG, which is not recommended as she is getting better and the disease activity has stopped already. They want to take her home in the next few days; discussed home with PT vs
hospice. lack of short term memory after hemorrhagic stroke in October likely with underlying Alz that decompensated
Plan
please call if condition worsens
Subjective/Objective
Subjective Data
Date of Service: January 28, 2025
this morning episode of worsening mentation, resolved.
family feels she is a little stronger
Objective Data
Vital Signs
Temp Pulse Resp BP Pulse Ox
36.2 C 72 14 130/80 95
01/28/25 15:36 01/28/25 15:36 01/28/25 15:36 01/28/25 15:36 01/28/25 15:36
Lab Results
01/28/25 07:17
01/28/25 07:17
Sodium 137 mmol/L (135-145) 01/28/25 07:17
Potassium 4.3 mmol/L (3.5-5.1) 01/28/25 07:17
BUN 21 mg/dl (7-17) H 01/28/25 07:17
Glucose 119 mg/dl (70-99) H 01/28/25 07:17
Calcium 8.8 mg/dl (8.4-10.2) 01/28/25 07:17
Patient Allergies
No Known Allergies Allergy (Unverified 01/26/25 16:36)
[2025-01-28] MEDS: NORVASC 5 MG PO (17:16)
[2025-01-28] MEDS: LIPITOR 40 MG PO (17:17)
[2025-01-29 03:40] VITALS: BP 118/66
[2025-01-29 07:06] LABS: Hematocrit 36.7 % (37.0-47.0); Hemoglobin 12.4 g/dL (12.0-16.0); Mean Corp Hgb Conc. 33.8 g/dL (33.0-37.0); Mean Corpuscular Volume 94.8 fL (81.0-99.0); Nucleated Red Blood Cells % 0 %; Platelet Count 368 10^3/uL (130-400); Red Cell Dist. Width 14.0 % (11.5-14.5)
[2025-01-29 07:46] LABS: Blood Urea Nitrogen 24 mg/dl (7-17); Calcium 8.9 mg/dl (8.4-10.2); Carbon Dioxide 24 mmol/L (22-30); Chloride 106 mmol/L (98-107); Estimated Creatinine Clearance 38 ml/min; Glucose 101 mg/dl (70-99); Potassium 4.7 mmol/L (3.5-5.1); Sodium 139 mmol/L (135-145); eGFR 57.66
[2025-01-29 07:55] VITALS: BP 106/61
[2025-01-29] MEDS: AUGMENTIN 875 MG/125 MG 1 TABLET PO ×2 (09:59→20:24)
[2025-01-29] MEDS: COREG PO (09:59)
[2025-01-29] MEDS: DEPAKENE 125 MG PO ×3 (09:59→21:35)
[2025-01-29] MEDS: FLUSH (NSS) 1 FLUSH IV (10:01)
[2025-01-29] MEDS: ZYPREXA 2.5 MG PO ×3 (10:01→21:36)
[2025-01-29] MEDS: NICODERM TRANSDERMAL 7 MG TRANSDERM (10:01)
--- NOTE | 2025-01-29 11:11 | W.PN.HOSP.TC ---
Today's Communication/Plan
-
GOC
Assessment / Plan
Assessment / Plan
Physical exam:
General: Acutely ill
HEENT: Normocephalic, Atraumatic and Moist Mucous Membranes
Respiratory: Decreased breath sounds bilaterally, no crackles or wheezes
Cardiac: Regular Rhythm and S1/S2
GI: Soft, Nontender and Nondistended
Musculoskeletal: No Clubbing, No Cyanosis and No Edema
Neuro: Alert, disoriented, does respond to verbal stimuli, follow commands, generalized weakness more pronounced both lower extremities, areflexia, left-sided neglect.
Psych: Limited judgment and insight.
A/P:
Toxic metabolic encephalopathy:
Multifactorial etiology GBS, stroke, delirium, aspiration pneumonia, and other.
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
Neurology decided on no treatment for GBS given improvement and risks benefits
MRI of the brain-possible new strokes
Neurology consult appreciated
No antiplatelets per neurology and after discussion with daughter given her history of intracranial bleed will keep as is. [facility] discussions took place. Daughter also would like to know more about hospice/palliative information at this point-consult
placed.
On valproic acid for seizures prevention per family
PT OT and speech eval
Discussed with prior and discussed with daughter at bedside as stated above
Aspiration pneumonia:
Continue Augmentin to finish a 5 days course
Blood cultures no growth
WBC 18-->11.5
Hypertension:
Continue amlodipine and Coreg
Hyperlipidemia:
Continue atorvastatin
Paroxysmal A-fib:
On rate control, Coreg
Not on anticoagulation due to ICH
Cardiac monitoring
Rest of medical problems:
History of cerebral hemorrhage
History of moderate to severe protein calorie malnutrition
Nicotine addiction
History of atrial fibrillation, unspecified
History of probable CAD
History of dysphagia
History of ischemic cardiomyopathy
Delirium
Anemia
DVT prophylaxis:
SCDs
Code status:
DNR
Time spent 52 minutes. More than 50% of the time in counseling coordination in terms of plan of care, prognosis, palliative care, hospice, discharge disposition, etc.
Anticipated Discharge: > 48 hours
Subjective/Interval History
-
Date of Service: January 29, 2025
Patient still encephalopathic but slightly improved overall and less lower extremity weakness.
Objective Data
-
Labs:
Laboratory Results
01/29/25
06:05
WBC 11.5 H
Hgb 12.4
Hct 36.7 L
Plt Count 368
Sodium 139
Potassium 4.7
Chloride 106
Carbon Dioxide 24
BUN 24 H
Creatinine 1.0
Glucose 101 H
Calcium 8.9
Vital Signs:
Vital Signs
Temp Pulse Resp BP Pulse Ox
98.3 F 77 16 106/61 95
01/29/25 07:55 01/29/25 07:55 01/29/25 07:55 01/29/25 09:59 01/29/25 07:55
I&O
01/28/25 01/29/25 01/30/25
06:59 06:59 06:59
Intake Total 600 / 600 840 / 840
Output Total 1900 / 1900 875 / 875
Balance -1300 / -1300 -35 / -35
[2025-01-29 11:20] VITALS: BP 106/62
--- NOTE | 2025-01-29 15:53 | CM ---
CM following re: d/c planning.
Hospice c/s acknowledged.
CM attempted to reach daughter Yin to discuss and offer a referral.
She was unable to reach, CM left a VM.
Awaiting return call prior to sending a referral.
CM continuing to follow.
Hospice discussion pending.
[2025-01-29 15:55] VITALS: BP 110/68
[2025-01-29] MEDS: NORVASC 5 MG PO (18:05)
[2025-01-29] MEDS: LIPITOR 40 MG PO (18:05)
[2025-01-29 19:50] VITALS: BP 111/57
[2025-01-29] MEDS: TYLENOL 650 MG PO (20:24)
[2025-01-29] MEDS: COREG 25 MG PO (20:24)
[2025-01-29 23:51] VITALS: BP 98/57
[2025-01-30 03:27] VITALS: BP 115/69
[2025-01-30 07:32] LABS: Hematocrit 37.4 % (37.0-47.0); Hemoglobin 12.5 g/dL (12.0-16.0); Mean Corp Hgb Conc. 33.4 g/dL (33.0-37.0); Mean Corpuscular Volume 96.1 fL (81.0-99.0); Nucleated Red Blood Cells % 0 %; Platelet Count 345 10^3/uL (130-400); Red Cell Dist. Width 14.1 % (11.5-14.5)
[2025-01-30 07:49] LABS: Blood Urea Nitrogen 27 mg/dl (7-17); Calcium 9.2 mg/dl (8.4-10.2); Carbon Dioxide 27 mmol/L (22-30); Chloride 105 mmol/L (98-107); Estimated Creatinine Clearance 38 ml/min; Glucose 160 mg/dl (70-99); Potassium 4.5 mmol/L (3.5-5.1); Sodium 138 mmol/L (135-145); eGFR 57.66
[2025-01-30 07:56] VITALS: BP 108/54
--- NOTE | 2025-01-30 08:11 | W.PN.HOSP.TC ---
Today's Communication/Plan
-
See plan
Assessment / Plan
Assessment / Plan
Physical exam:
General: Acutely ill
HEENT: Normocephalic, Atraumatic and Moist Mucous Membranes
Respiratory: Decreased breath sounds bilaterally, no crackles or wheezes
Cardiac: Regular Rhythm and S1/S2
GI: Soft, Nontender and Nondistended
Musculoskeletal: No Clubbing, No Cyanosis and No Edema
Neuro: Alert, disoriented, does respond to verbal stimuli, follow commands, generalized weakness more pronounced both lower extremities, areflexia, left-sided neglect.
Psych: Limited judgment and insight.
A/P:
Toxic metabolic encephalopathy:
Multifactorial etiology GBS, stroke, delirium, aspiration pneumonia, and other.
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
Neurology decided on no treatment for GBS given improvement and risks benefits
MRI of the brain-possible new strokes
Neurology consult appreciated
No antiplatelets per neurology and after discussion with daughter given her history of intracranial bleed will keep as is. GO discussions took place. Daughter also would like to know more about hospice/palliative information at this point-consult
placed.
On valproic acid for seizures prevention per family
PT OT and speech eval. VSE done for swallow eval
Discussed with prior and discussed with daughter at bedside as stated above
Aspiration pneumonia:
Continue Augmentin to finish a 5 days course
Blood cultures no growth
WBC 18-->11.5
Hypertension:
Continue amlodipine and Coreg
Hyperlipidemia:
Continue atorvastatin
Paroxysmal A-fib:
On rate control, Coreg
Not on anticoagulation due to ICH
Cardiac monitoring
Rest of medical problems:
History of cerebral hemorrhage
History of moderate to severe protein calorie malnutrition
Nicotine addiction
History of atrial fibrillation, unspecified
History of probable CAD
History of dysphagia
History of ischemic cardiomyopathy
Delirium
Anemia
DVT prophylaxis:
SCDs
Code status:
DNR
Time spent 35 minutes
Anticipated Discharge: 24 - 48 hours
Subjective/Interval History
-
Date of Service: January 30, 2025
Patient alert and more coherent this morning. She was agitated earlier and family had to come in. Afebrile
Objective Data
-
Labs:
Laboratory Results
01/30/25
07:14
WBC 13.0 H
Hgb 12.5
Hct 37.4
Plt Count 345
Sodium 138
Potassium 4.5
Chloride 105
Carbon Dioxide 27
BUN 27 H
Creatinine 1.0
Glucose 160 H
Calcium 9.2
Vital Signs:
Vital Signs
Temp Pulse Resp BP Pulse Ox
97.6 F 74 16 108/54 96
01/30/25 07:56 01/30/25 07:56 01/30/25 07:56 01/30/25 07:56 01/30/25 07:56
I&O
01/29/25 01/30/25 01/31/25
06:59 06:59 06:59
Intake Total 840 / 840 1630 / 1630 480 / 480
Output Total 875 / 875
Balance -35 / -35 1630 / 1630 480 / 480
[2025-01-30] MEDS: AUGMENTIN 875 MG/125 MG 1 TABLET PO ×2 (09:37→20:32)
[2025-01-30] MEDS: NICODERM TRANSDERMAL 7 MG TRANSDERM (09:38)
[2025-01-30] MEDS: ZYPREXA 2.5 MG PO ×3 (09:38→20:33)
[2025-01-30] MEDS: COREG PO ×2 (09:38→20:32)
[2025-01-30] MEDS: DEPAKENE 125 MG PO ×3 (09:40→20:33)
[2025-01-30] MEDS: FLUSH (NSS) 1 FLUSH IV (09:41)
[2025-01-30] MEDS: TYLENOL 650 MG PO (10:52)
[2025-01-30 11:11] VITALS: BP 109/59
[2025-01-30 15:49] VITALS: BP 101/66
[2025-01-30] MEDS: LIPITOR 40 MG PO (18:15)
[2025-01-30] MEDS: NORVASC 5 MG PO (18:15)
[2025-01-30 19:40] VITALS: BP 101/63
[2025-01-30 23:50] VITALS: BP 133/80
[2025-01-31 03:40] VITALS: BP 129/68
[2025-01-31 07:21] VITALS: BP 130/76
[2025-01-31 07:34] LABS: Hematocrit 36.8 % (37.0-47.0); Hemoglobin 12.3 g/dL (12.0-16.0); Mean Corp Hgb Conc. 33.4 g/dL (33.0-37.0); Mean Corpuscular Volume 95.3 fL (81.0-99.0); Nucleated Red Blood Cells % 0 %; Platelet Count 370 10^3/uL (130-400); Red Cell Dist. Width 14.0 % (11.5-14.5)
[2025-01-31 07:45] LABS: Blood Urea Nitrogen 24 mg/dl (7-17); Calcium 9.1 mg/dl (8.4-10.2); Carbon Dioxide 28 mmol/L (22-30); Chloride 103 mmol/L (98-107); Estimated Creatinine Clearance 42 ml/min; Glucose 116 mg/dl (70-99); Potassium 4.1 mmol/L (3.5-5.1); Sodium 137 mmol/L (135-145); eGFR > 60.00
[2025-01-31] MEDS: NICODERM TRANSDERMAL 7 MG TRANSDERM (08:18)
[2025-01-31] MEDS: ZYPREXA 2.5 MG PO ×3 (08:19→21:18)
[2025-01-31] MEDS: AUGMENTIN 875 MG/125 MG 1 TABLET PO ×2 (08:19→21:17)
[2025-01-31] MEDS: DEPAKENE 125 MG PO ×3 (08:19→21:18)
[2025-01-31] MEDS: COREG 25 MG PO ×2 (08:19→21:18)
[2025-01-31] MEDS: SENOKOT-S 1 TABLET PO (08:20)
--- NOTE | 2025-01-31 10:40 | W.PN.HOSP.TC ---
Today's Communication/Plan
-
Antibiotics. PT OT reeval. Chest x-ray. 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
Assessment / Plan
Assessment / Plan
Physical exam:
General: Acutely ill
HEENT: Normocephalic, Atraumatic and Moist Mucous Membranes
Respiratory: Decreased breath sounds bilaterally, no crackles or wheezes
Cardiac: Regular Rhythm and S1/S2
GI: Soft, Nontender and Nondistended
Musculoskeletal: No Clubbing, No Cyanosis and No Edema
Neuro: Alert, disoriented, does respond to verbal stimuli, follow commands, generalized weakness more pronounced both lower extremities, areflexia, left-sided neglect.
Psych: Limited judgment and insight.
A/P:
Toxic metabolic encephalopathy:
Multifactorial etiology GBS, stroke, delirium, aspiration pneumonia.
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
Neurology decided on no treatment for GBS given improvement and risks benefits
MRI of the brain-possible new strokes
Neurology consult appreciated
No antiplatelets per neurology and after discussion with daughter given her history of intracranial bleed will keep as is. [facility] discussions took place. Daughter also would like to know more about hospice/palliative information at this point-hospice
consult placed but family tells me that discussions have not taken place yet.
On valproic acid for seizures prevention per family
PT OT and speech eval. VSE done for swallow eval. On minced and moist diet and follow-up further speech recommendations. PT OT recommended home health but reevaluation would be warranted most likely. Family does want to take her home if possible.
Discussed with prior and discussed with daughter at bedside multiple times over the last few days.
Aspiration pneumonia:
Continue Augmentin to finish a 5 days course
Blood cultures no growth
WBC 18-->11.5-->13.7
Repeated chest x-ray today shows improvement of pneumonia
Hypertension:
Continue amlodipine and Coreg
Hyperlipidemia:
Continue atorvastatin
Paroxysmal A-fib:
On rate control, Coreg
Not on anticoagulation due to ICH
Cardiac monitoring
Rest of medical problems:
History of cerebral hemorrhage
History of moderate to severe protein calorie malnutrition
Nicotine addiction
History of atrial fibrillation, unspecified
History of probable CAD
History of dysphagia
History of ischemic cardiomyopathy
Delirium
Anemia
DVT prophylaxis:
SCD
Add Lovenox SQ
Code status:
DNR
Time spent 35 minutes
Anticipated Discharge: 24 - 48 hours
Subjective/Interval History
-
Date of Service: January 31, 2025
Patient with generalized weakness and confusion on and off. Afebrile
Objective Data
-
Labs:
Laboratory Results
01/31/25
07:08
WBC 13.7 H
Hgb 12.3
Hct 36.8 L
Plt Count 370
Sodium 137
Potassium 4.1
Chloride 103
Carbon Dioxide 28
BUN 24 H
Creatinine 0.9
Glucose 116 H
Calcium 9.1
Vital Signs:
Vital Signs
Temp Pulse Resp BP Pulse Ox
98.2 F 79 16 130/76 96
01/31/25 07:21 01/31/25 07:21 01/31/25 07:21 01/31/25 08:19 01/31/25 07:21
I&O
01/30/25 01/31/25 02/01/25
06:59 06:59 06:59
Intake Total 1630 / 1630 1680 / 1680 240 / 240
Output Total 1375 / 1375
Balance 1630 / 1630 305 / 305 240 / 240
[2025-01-31 12:17] VITALS: BP 111/65
[2025-01-31 15:55] VITALS: BP 124/81
[2025-01-31] MEDS: LOVENOX 40 MG SC (18:09)
[2025-01-31] MEDS: NORVASC 5 MG PO (18:10)
[2025-01-31] MEDS: LIPITOR 40 MG PO (18:10)
[2025-01-31] MEDS: TYLENOL 650 MG PO (21:16)
[2025-01-31 23:09] VITALS: BP 89/51
[2025-01-31 23:55] VITALS: BP 96/57
[2025-02-01 03:27] VITALS: BP 96/62
[2025-02-01 07:24] LABS: Hematocrit 35.6 % (37.0-47.0); Hemoglobin 12.1 g/dL (12.0-16.0); Mean Corp Hgb Conc. 34.0 g/dL (33.0-37.0); Mean Corpuscular Volume 93.9 fL (81.0-99.0); Nucleated Red Blood Cells % 0 %; Platelet Count 380 10^3/uL (130-400); Red Cell Dist. Width 13.8 % (11.5-14.5)
[2025-02-01 07:50] VITALS: BP 110/71
[2025-02-01 07:54] LABS: Blood Urea Nitrogen 27 mg/dl (7-17); Calcium 9.1 mg/dl (8.4-10.2); Carbon Dioxide 26 mmol/L (22-30); Chloride 105 mmol/L (98-107); Estimated Creatinine Clearance 42 ml/min; Glucose 102 mg/dl (70-99); Potassium 4.3 mmol/L (3.5-5.1); Sodium 136 mmol/L (135-145); eGFR > 60.00
[2025-02-01] MEDS: NICODERM TRANSDERMAL 7 MG TRANSDERM (08:50)
[2025-02-01] MEDS: ZYPREXA 2.5 MG PO ×3 (08:51→23:16)
[2025-02-01] MEDS: DEPAKENE 125 MG PO ×3 (08:51→23:16)
[2025-02-01] MEDS: COREG 25 MG PO (08:51)
[2025-02-01 09:25] VITALS: BP 116/74; PULSE 74; O2SAT 94
[2025-02-01 09:36] VITALS: BP 116/64; PULSE 74
--- NOTE | 2025-02-01 10:38 | CM ---
CM contacted by pt's daughter, Montse Goldberg (listed at [facility] in the demographics). Information regarding hospice care provided per daughter's request. Referral sent to Hospice and accepted. Plan for admission to hospice tomorrow;
Keely Samayoa requested 1PM waste picker via ambulance 02/02/2025.
Transport forms completed and on chart. Need OOH DNR form.
Plan: Discharge to daughter's home via ambulance transport with hospice care requested by daughter for Hospice.
--- NOTE | 2025-02-01 10:54 | HOSPNOTE ---
Addendum entered by Keely Samayoa RN 02/01/25 14:51:
Daughter Montse called this RN back to state they are in agreement with hospice services. Confirmed d/c tomorrow. Requested transport be arranged for 11 am. CM updated and to arrange transport. Once patient is home tomorrow, will sign onto hospice
services.
Original Note:
Hospice referral received. Called and spoke to daughter Montse. Reviewed VN, Palliative and Hospice care with her in great detail. She is going to discuss it with her father and let us know how they wish to proceed. Answered all of her questions and
she was thankful for all the information. She has my direct number incase she has any more questions or wishes to proceed with hospice. More information to follow once decision is made. CM updated.
[2025-02-01] MEDS: MILK OF MAGNESIA 30 ML PO (12:37)
[2025-02-01 15:00] VITALS: BP 104/63
--- NOTE | 2025-02-01 15:47 | W.PN.HOSP.TC ---
Today's Communication/Plan
-
see note
for home hospice d/c tomorrow
Assessment / Plan
Assessment / Plan
MR brain
Small focus of restricted diffusion signal involving the periventricular white matter lateral to the posterior body of the right lateral ventricle as described. This is suggestive of a small focus of acute to subacute infarction.
Large area of encephalomalacia involving the right hemisphere, compatible with old right MCA infarct. In the junction of the posterior and superior right temporal lobe and the inferior right parieto-occipital region, there is a focal area of
decreased T2-weighted signal with susceptibility blooming, compatible with hemosiderin deposition from previous hemorrhage.
No significant mass effect with no midline shift.

1. Toxic metabolic encephalopathy -improved
-Question of possible stroke versus aspiration pneumonia related
-Neurology was also questioning GBS causing the symptoms although unsure if encephalopathy is part of GBS
-No clear infectious etiology except possible aspiration pneumonia.
-Check valproate level
-Clinically improved at this stage, continue supportive care as needed
2. Acute/subacute CVA
- MRI brain report as above and showing small focus of acute to subacute infarction on right periventricular region
-Neurology consulted and discussed possible antiplatelet therapy although with patient history of intracranial hemorrhage earlier this year, this was avoided
3. Recent intracranial hemorrhage
-Patient was recently hospitalized at [facility] for intracranial hemorrhage
-MRI brain showing large area of encephalomalacia involving right hemisphere with some hemosiderin deposition in right prior occipital region.
-Patient currently on valproic acid for seizure prophylaxis, to be continued
4. Aspiration pneumonia:
-Continue Augmentin to finish a 5 days course
-Blood cultures no growth
-Repeated chest x-ray today shows improvement of pneumonia
-WBC trending down.
5. Constipation
-some abd discomfort, BM with laxatives,.
Hypertension: Continue amlodipine and Coreg
Hyperlipidemia: Continue atorvastatin
Paroxysmal A-fib: On rate control, Coreg . Not on anticoagulation due to ICH
History of moderate to severe protein calorie malnutrition
Nicotine addiction
History of atrial fibrillation, unspecified
History of probable CAD
History of dysphagia
History of ischemic cardiomyopathy
Delirium
Anemia
DVT prophylaxis: Lovenox SQ
Code status: DNR
Neurology discussed prognosis with patient earlier in the week in light of declining neurofunction. Patient family have agreed for patient to go home with home hospice. Patient for plan for discharge tomorrow.
Anticipated Discharge: Within 24 hours
Subjective/Interval History
-
Date of Service: February 01, 2025
patient awake and not voicing any complains
at bedside
no futher issues
Objective Data
-
Labs:
Laboratory Results
02/01/25
06:34
WBC 13.0 H
Hgb 12.1
Hct 35.6 L
Plt Count 380
Sodium 136
Potassium 4.3
Chloride 105
Carbon Dioxide 26
BUN 27 H
Creatinine 0.9
Glucose 102 H
Calcium 9.1
Vital Signs:
Vital Signs
Temp Pulse Resp BP Pulse Ox
97.7 F 70 18 110/71 94
02/01/25 07:50 02/01/25 08:51 02/01/25 07:50 02/01/25 08:51 02/01/25 09:15
I&O
01/31/25 02/01/25 02/02/25
06:59 06:59 06:59
Intake Total 1680 / 1680 920 / 920
Output Total 1375 / 1375 100 / 100
Balance 305 / 305 820 / 820
Review of Systems
-
Respiratory: Reports No Symptoms
Cardiac: Reports No Symptoms
Abdomen/GI: Reports No Symptoms
Physical Exam
-
General: Negative Appears in Distress
HEENT: Negative Oxygen
Neuro: Awake, Alert and Oriented
[2025-02-01] MEDS: LIPITOR 40 MG PO (17:20)
[2025-02-01] MEDS: NORVASC 5 MG PO (17:21)
[2025-02-01] MEDS: LOVENOX 40 MG SC (17:25)
[2025-02-01] MEDS: COREG PO (20:52)
[2025-02-01 20:56] LABS: Depakane 34.8 ug/ml (50.0-120.0)
[2025-02-01 23:30] VITALS: BP 113/59
--- NOTE | 2025-02-02 07:32 | W.PN.HOSP.TC ---
Today's Communication/Plan
-
home with hospice
[facility] DNR signed
Assessment / Plan
Assessment / Plan
pt is a 79 year old female
MR brain
Small focus of restricted diffusion signal involving the periventricular white matter lateral to the posterior body of the right lateral ventricle as described. This is suggestive of a small focus of acute to subacute infarction.
Large area of encephalomalacia involving the right hemisphere, compatible with old right MCA infarct. In the junction of the posterior and superior right temporal lobe and the inferior right parieto-occipital region, there is a focal area of
decreased T2-weighted signal with susceptibility blooming, compatible with hemosiderin deposition from previous hemorrhage.
No significant mass effect with no midline shift.

home with hospice today
1. Toxic metabolic encephalopathy -improved-still seems confused to me
-Question of possible stroke versus aspiration pneumonia related
-Neurology was also questioning GBS causing the symptoms although unsure if encephalopathy is part of GBS
-No clear infectious etiology except possible aspiration pneumonia.
-Check valproate level
-Clinically improved at this stage, continue supportive care as needed
2. Acute/subacute CVA
- MRI brain report as above and showing small focus of acute to subacute infarction on right periventricular region
-Neurology consulted and discussed possible antiplatelet therapy although with patient history of intracranial hemorrhage earlier this year, this was avoided
3. Recent intracranial hemorrhage
-Patient was recently hospitalized at [facility] for intracranial hemorrhage
-MRI brain showing large area of encephalomalacia involving right hemisphere with some hemosiderin deposition in right prior occipital region.
-Patient currently on valproic acid for seizure prophylaxis, to be continued
4. Aspiration pneumonia:
-Continue Augmentin to finish a 5 days course
-Blood cultures no growth
-Repeated chest x-ray today shows improvement of pneumonia
-WBC trending down.
5. Constipation
-some abd discomfort, BM with laxatives,.
Hypertension: Continue amlodipine and Coreg
Hyperlipidemia: Continue atorvastatin
Paroxysmal A-fib: On rate control, Coreg . Not on anticoagulation due to ICH
History of moderate to severe protein calorie malnutrition
Nicotine addiction
History of atrial fibrillation, unspecified
History of probable CAD
History of dysphagia
History of ischemic cardiomyopathy
Delirium
Anemia
DVT prophylaxis: Lovenox SQ
Code status: DNR
Neurology discussed prognosis with patient earlier in the week in light of declining neurofunction. Patient family have agreed for patient to go home with home hospice. Patient for plan for discharge tomorrow.
Anticipated Discharge: Today
Subjective/Interval History
-
Date of Service: February 02, 2025
pt appears confused--looks at me without understanding
Objective Data
-
Vital Signs:
max temp for 24 hours
02/01/25
23:30
Temp 97.7 F
Vital Signs
Temp Pulse Resp BP Pulse Ox
97.7 F 74 17 113/59 97
02/01/25 23:30 02/01/25 23:30 02/01/25 23:30 02/01/25 23:30 02/01/25 23:30
I&O
02/01/25 02/02/25 02/03/25
06:59 06:59 06:59
Intake Total 920 / 920 480 / 480
Output Total 100 / 100
Balance 820 / 820 480 / 480
Review of Systems
-
All other systems: Reviewed and negative
Physical Exam
-
General: Well Developed and Well Nourished
HEENT: Normocephalic and Atraumatic
Respiratory: Clear to Auscultation; Negative Wheezes or Rhonchi
Cardiac: Regular Rhythm and S1/S2; Negative Murmur
GI: Soft, Nontender, Nondistended and Normal Bowel Sounds
Musculoskeletal: No Clubbing, No Cyanosis and No Edema
Neuro: Awake
Psych: Calm
[2025-02-02 07:45] VITALS: BP 107/63
--- NOTE | 2025-02-02 08:10 | PTCARENOTE ---
Pt is discharged today and going home with hospice, ok with completing the [facility].
[2025-02-02 08:28] LABS: Glucose - Point of Care 161 mg/dl (70-99)
[2025-02-02] MEDS: DEPAKENE 125 MG PO (08:45)
[2025-02-02] MEDS: NICODERM TRANSDERMAL TRANSDERM (08:46)
[2025-02-02] MEDS: COREG PO (08:46)
[2025-02-02] MEDS: ZYPREXA 2.5 MG PO (08:46)
--- NOTE | 2025-02-05 08:13 | W.DCSUMMARY ---
Discharge Summary
Discharge Data
Date of Admission: 01/25/25
Date of Discharge: 02/02/25
-
Pending Results: No
Hospital Course
Discharging Physician : Dr Demarcus Bazzi
Disposition : Home with hospice
Primary care physician : Unknown
Principal Discharge diagnosis :
Toxic metabolic encephalopathy
Acute/subacute stroke
Recent hemorrhagic stroke
Aspiration pneumonia
Chronic Discharge diagnosis :
Essential hypertension
Hyperlipidemia
Paroxysmal atrial fibrillation
Moderate to severe protein calorie malnutrition
Tobacco abuse
Coronary artery disease
History of dysphagia
History of ischemic cardiomyopathy
Chronic anemia
Hospital Course :
Patient is a 79-year-old female with above-mentioned past medical history was brought into ER for evaluation of generalized weakness and confusion. Patient was just recently discharged from [facility] rehab after prolonged hospitalization for
cerebral hemorrhage earlier in the year. Patient had reported episodes of agitation and urinary incontinence on the night of ER admission. Patient was admitted for further workup and initially was felt to having an encephalopathy from possible
seizure versus new ischemic event. Infectious etiology was thought to be ruled out as well as patient was having fever episode. Infectious disease doctor and neurology was involved in care. Based on chest x-ray patient had concern of possible
aspiration pneumonia and was maintained on empiric antibiotics. Blood culture did not show any bacterial growth. MRI of the brain showed a suspected possible new stroke. Neurology discussed overall prognosis with patient family and patient family
decided for patient to be taken to home on home hospice. Appropriate arrangements were made and patient was discharged to home hospice after that.
Important imaging findings :
None
Procedure findings :
None
Discharge Plan
-
Patient Disposition: Home with Hospice
Discharge Diagnosis/Procedures: Toxic metabolic encephalopathy, acute to subacute stroke, recent intracranial hemorrhage, aspiration pneumonia, essential hypertension, hyperlipidemia, paroxysmal atrial fibrillation, moderate to severe protein
calorie malnutrition, unspecified atrial fibrillation, probable coronary artery disease, delirium, anemia presumed chronic disease
Condition: Fair
Diet: As tolerated
Activity: As tolerated
Driving Restrictions: No driving
Bathing Restrictions: None
Other Services: Hospice
Referrals:
NONE,* [Family Provider, Internal Medicine] - in less than 1 week
Prescriptions:
New
acetaminophen 325 mg Tablet
650 mg PO Q4HPRN PRN (Reason: mild pain/BRAUN/temp> 100.4F) Qty: 0 0RF
bisacodyl 10 mg Suppository
10 mg MN [id number] PRN (Reason: constipation) Qty: 12 0RF
Continued
olanzapine 2.5 mg Tablet
2.5 mg PO TID
valproic acid (as sodium salt) 250 mg/5 mL Solution
125 mg PO TID
Discontinued
atorvastatin [Lipitor] 40 mg Tablet
40 mg PO QPM
carvedilol [Coreg] 25 mg Tablet
25 mg PO BID
amlodipine [Norvasc] 5 mg Tablet
5 mg PO QPM
Discharge Orders:
Discharge Patient (As Directed); Ordered 02/02/25
Ordered By: Esperanza Rueda
Discharge Date and Time
Discharge Date/Time: 02/02/25 11:33
Print Language: ITALIAN
== END 2025-02-02 11:33 | disposition hospice, home (50) | DRG 64 ==
LOC: 4 EAST ACU 15:25
PROVIDERS: Hospitalist; Nurse Practitioner Family; ADMITTING PHYSICIAN Hospitalist; ATTENDING PHYSICIAN Internal Medicine; CONSULT PHYSICIAN Internal Medicine Infectious Disease; CONSULT PHYSICIAN Psychiatry & Neurology Clinical Neurophysiology; EMERGENCY PHYSICIAN Emergency Medicine
DX: I63.9 Cerebral infarction, unspecified (principal); G92.8 Other toxic encephalopathy; J69.0 Pneumonitis due to inhalation of food and vomit; Z68.1 Body mass index [BMI] 19.9 or less, adult; F17.200 Nicotine dependence, unspecified, uncomplicated; I10 Essential (primary) hypertension; E78.5 Hyperlipidemia, unspecified; I48.0 Paroxysmal atrial fibrillation; Z66 Do not resuscitate; R63.6 Underweight; K59.00 Constipation, unspecified
CPT/HCPCS: 70450; 70551; 71045; 71046; 74230; 80048; 80053; 80164; 81003; 81015; 82962; 85025; 85027; 87040; 92523; 92526; 92610; 92611; 93005; 97116; 97163; 97166; 97530; 97535; 99285; 99406